=== PATIENT | male | born 1985 | race Caucasian/White ===

== ENCOUNTER 2021-12-31 09:19 | Emergency (ER) | payer SELFPAY ==
[2021-12-31 10:18] LABS: Absolute Lymphocytes (CBC) 2.1 K/uL (0.7-4.9); Hematocrit 46.1 % (39.6-49.0); Lymphocytes % 16.4 % (15.3-44.8); MPV 8.7 fL (7.6-11.3)
[2021-12-31 10:33] LABS: Albumin 2.9 g/dL (3.4-5.0); Bilirubin Total 1.1 mg/dL (0.2-1.0); Protein, Total 8.3 g/dL (6.4-8.2)
[2021-12-31 10:41] LABS: Potassium 2.6 mmol/L (3.5-5.1)
--- NOTE | 2021-12-31 12:56 | RAD REPORT ---
EXAM DESCRIPTION: CTAbdomen Pelvis W Contrast - 12/31/2021 12:30 pm CLINICAL HISTORY: Abdominal pain, distension COMPARISON: No comparisons TECHNIQUE: CT of the abdomen and pelvis was performed. All CT scans are performed using dose optimization technique as appropriate and may include automated exposure control or mA/KV adjustment according to patient size. FINDINGS: Lower chest: No acute abnormality. Liver: No acute abnormality or suspicious lesions. Biliary: No biliary ductal dilatation. Stomach: No significant focal abnormality. Duodenum: No significant focal abnormality. Pancreas: No significant abnormality. Spleen: No significant abnormality. Adrenal: No suspicious lesions. Kidney/ureter: No hydronephrosis. No renal calculi. Retroperitoneum: No retroperitoneal adenopathy. Vascular: No aneurysm. Bowel: Colonic obstruction at the level of the descending and proximal sigmoid.. There is irregular s oft tissue thickening concerning for underlying mass. Peritoneum: Peripherally enhancing mass/ collection in the sigmoid mesocolon measuring 6.3 x 5.5 x 3. 3 cm. . Small fat containing inguinal hernias. Bladder: Grossly unremarkable. Reproductive: No adnexal masses. Bones: No acute fracture. Other: n/a IMPRESSION: Colonic obstruction at the level of the distal descending/proximal sigmoid concerning fo r underlying colonic neoplasm. Peripherally enhancing mass/collection in the sigmoid mesocolon favore d to represent tumor/adenopathy rather than a contained perforation. Recommend surgical consultation.
[2021-12-31] MEDS ORDERED: Ringers Lactate 1,000 ML IV ONE (13:32)
[2021-12-31 14:11] LABS: SARS-CoV-2 Antigen Rapid Res Negative (Negative)
[2021-12-31] MEDS ORDERED: KCL 20 MEQ/100 mL IVPB 100 ML IV ONE (14:50)
[2021-12-31] MEDS ORDERED: NA CHLORIDE 0.9% 250 ML ONE (14:51)
[2021-12-31] MEDS ORDERED: LIDOCAINE VISCOUS 2% SOLN 15 ML UDC ONE (15:55)
--- NOTE | 2021-12-31 16:45 | ER ---
Nurse's Notes [facility] Name: Eric Kimball Age: 36 yrs Sex: Male : 1985 Arrival Date: 12/31/2021 Time: 09:21 Bed 15 Private MD: Diagnosis: Large Bowel Obstruction;Colonic Mass Presentation: 12/31 09:48 Chief complaint: Patient states: Pt states constipation and vomiting x5 days with jh6 bloating. Pt reports 14lb weight loss x5 days. Coronavirus screen: Vaccine status: Patient reports being unvaccinated. Ebola Screen: Patient negative for fever greater than or equal to 101.5 degrees Fahrenheit, and additional compatible Ebola Virus Disease symptoms Patient denies exposure to infectious person. Patient denies travel to an Ebola-affected area in the 21 days before illness onset. Initial Sepsis Screen: Does the patient meet any 2 criteria? No. Patient's initial sepsis screen is negative. Does the patient have a suspected source of infection? No. Patient's initial sepsis screen is negative. Risk Assessment: Do you want to hurt yourself or someone else? Patient reports no desire to harm self or others. Onset of symptoms was December 26, 2021. 09:48 Method Of Arrival: Ambulatory [facility] 09:48 Acuity: HAL 3 6 Triage Assessment: 09:50 General: Appears in no apparent distress. comfortable, Behavior is calm, cooperative. 6 Pain: Complains of pain in abdomen Pain does not radiate. Pain currently is 5 out of 10 on a pain scale. Quality of pain is described as pressure, Bloating Pain began 5 days Is continuous. GI: Reports bloating, constipation, nausea, vomiting. Historical: - Allergies: 09:50 No Known Allergies; 6 - Home Meds: 09:50 None [Active]; 6 - PMHx: 09:50 Hypertensive disorder; [facility] - Immunization history:: Client reports having NOT received the Covid vaccine. - Social history:: Smoking status: Patient denies any tobacco usage or history of. Screenin:44 Abuse screen: Denies threats or abuse. Nutritional screening: No deficits noted. vg1 Tuberculosis screening: No symptoms or risk factors identified. Fall Risk No fall in past 12 months (0 pts). No secondary diagnosis (0 pts). IV access (20 points). Ambulatory Aid- None/Bed Rest/Nurse Assist (0 pts). Gait- Normal/Bed Rest/Wheelchair (0 pts) Mental Status- Oriented to own ability (0 pts). Total Landa Fall Scale indicates No Risk (0-24 pts). Assessment: 13:12 General: Appears in no apparent distress. comfortable, Behavior is calm, cooperative. vg1 Pain: Denies pain. Neuro: Level of Consciousness is awake, alert, obeys commands, Oriented to person, place, time, situation. Cardiovascular: Patient's skin is warm and dry. Respiratory: Airway is patent Respiratory effort is even, unlabored. GI: Abdomen is round obese, Bowel sounds present X 4 quads. Abd is soft and non tender X 4 quads. Reports intolerance of fluids, intolerance of food, nausea, vomiting. 13:12 : No signs and/or symptoms were reported regarding the genitourinary system. EENT: No vg1 signs and/or symptoms were reported regarding the EENT system. Derm: Skin is intact, is healthy with good turgor. Musculoskeletal: Circulation, motion, and sensation intact. 14:15 Reassessment: Patient appears in no apparent distress at this time. No changes from vg1 previously documented assessment. Patient and/or family updated on plan of care and expected duration. Pain level reassessed. Patient is alert, oriented x 3, equal unlabored respirations, skin warm/dry/pink. 15:15 Reassessment: Patient appears in no apparent distress at this time. No changes from vg1 previously documented assessment. Patient and/or family updated on plan of care and expected duration. Pain level reassessed. Patient is alert, oriented x 3, equal unlabored respirations, skin warm/dry/pink. 16:15 Reassessment: Patient appears in no apparent distress at this time. No changes from vg1 previously documented assessment. Patient and/or family updated on plan of care and expected duration. Pain level reassessed. Patient is alert, oriented x 3, equal unlabored respirations, skin warm/dry/pink. 16:56 Reassessment: Report given to Vineet WELLER. vg1 19:45 General: Appears in no apparent distress. Behavior is cooperative. Neuro: Level of sm5 Consciousness is awake, alert, obeys commands, Oriented to person, place, time, situation. GI: NGT to suction. Vital Signs: 09:48 Pulse 117; Resp 18; Temp 98.1; Pulse Ox 96% ; Weight 118.39 kg; Height 5 ft. 11 in. jh6 (180.34 cm); Pain 5/10; 10:11 BP 120 / 85; mb7 13:50 BP 119 / 87; Pulse 100; Resp 19; Pulse Ox 99% on R/A; vg1 14:30 BP 122 / 81; Pulse 96; Resp 16; Pulse Ox 95% on R/A; vg1 19:28 BP 116 / 71; Pulse 95; Resp 16; Pulse Ox 94% on R/A; sm5 09:48 Body Mass Index 36.40 (118.39 kg, 180.34 cm) 6 ED Course: 09:21 Patient arrived in ED. mr 09:22 Gilberto Jackson PA is PHCP. jmm 09:22 iGovani Bo DO is Attending Physician. m 09:50 Triage completed. 6 09:53 Arm band placed on left wrist. Patient placed in an exam room. jh6 10:05 Inserted saline lock: 20 gauge in left antecubital area, using aseptic technique. Blood jw7 collected. 10:06 Initial lab(s) drawn, by la, sent to lab. jw7 10:06 CBC with Diff Sent. jw7 10:06 CMP Sent. jw7 10:06 Lipase Sent. jw7 10:06 Lactate Sent. jw7 12:32 CT Abd/Pelvis - PO and IV Contrast In Process Unspecified. EDMS 13:11 Marilee Perry, RN is Primary Nurse. vg1 13:43 COVID swab sent to lab. tp1 13:44 Patient has correct armband on for positive identification. Bed in low position. Call vg1 light in reach. Side rails up X 1. Adult w/ patient. 15:03 initiated transfer to [facility]. bd 16:16 NGT: inserted 16 Fr. verified return of gastric contents, to intermittent suction. vg1 Returned gastric contents. Returned bile. Patient tolerated well. 17:03 XRAY Abdomen 1 View (KUB) In Process Unspecified. EDMS 19:11 Primary Nurse role handed off by Marilee Perry, RN mw2 19:14 Peace Monroy, NITHIN is Primary Nurse. 5 20:03 No provider procedures requiring assistance completed. Patient transferred, IV remains sm5 in place. Administered Medications: 13:30 Drug: Lactated Ringers Solution 1000 ml Route: IV; Rate: 1000 bolus; Site: left vg1 antecubital; 14:50 Drug: Potassium Chloride 20 mEq Route: IV; Rate: calculated rate; Site: left vg1 antecubital; 17:03 Follow up: IV Status: Completed infusion; IV Intake: 100ml vg1 Medication: 20:03 VIS not applicable for this client. sm5 Intake: 17:03 IV: 100ml; Total: 100ml. vg1 Outcome: 16:45 ER care complete, transfer ordered by MD. vargas 20:03 Transferred by ground EMS to [facility], Transfer form completed. 5 X-rays sent w/ patient. 20:03 Condition: stable 20:03 Instructed on the need for transfer. 20:03 Patient left the ED. 5 Signatures: Dispatcher [employer] EDMS Ximena Rausch Joel, PA PA [facility] Sreekanth, Melissa Fonseca, LakeishaNeoashely mw2 Marilee Perry, RN RN vg1 Salima Olsen RN RN jh6 Radha Montes De Oca RN RN tp1 Melissa Schulte mb7 Peace Monroy, RN RN 5 Maria Teresa Israel 7 Corrections: (The following items were deleted from the chart) 13:43 13:38 General: Appears in no apparent distress. comfortable, Behavior is calm, vg1 cooperative, vg1 13:43 13:38 Pain: Denies pain. vg1 vg1 13:43 13:38 Neuro: Level of Consciousness is awake, alert, obeys commands, Oriented to vg1 person, place, time, situation, vg1 13:43 13:38 Cardiovascular: Patient's skin is warm and dry. vg1 vg1 13:43 13:38 Respiratory: Airway is patent Respiratory effort is even, unlabored, vg1 vg1 13:43 13:38 GI: Abdomen is round obese, Abd is soft and non tender X 4 quads. vg1 vg1
--- NOTE | 2021-12-31 16:45 | EDPHYS ---
Physician Documentation [facility] Name: Eric Kimball Age: 36 yrs Sex: Male : 1985 Arrival Date: 12/31/2021 Time: 09:21 Bed 15 Private MD: ED Physician Giovani Bo HPI: 12/31 09:27 This 36 yrs old Male presents to ER via Ambulatory with complaints of Abdominal Pain. [facility] 09:27 The patient presents with abdominal pain. Onset: The symptoms/episode began/occurred jm gradually, 1 week(s) ago. The symptoms do not radiate. Associated signs and symptoms: Pertinent positives: nausea and vomiting. The symptoms are described as achy. This is a 36 year old male with a hstory of htn that presents to the ED with complaints of abdominal pain, vomiting, no bm for [address] Lopez due to concerns for bowel obstruction. . Historical: - Allergies: 09:50 No Known Allergies; [facility] - Home Meds: 09:50 None [Active]; [facility] - PMHx: 09:50 Hypertensive disorder; [facility] - Immunization history:: Client reports having NOT received the Covid vaccine. - Social history:: Smoking status: Patient denies any tobacco usage or history of. ROS: 09:27 Constitutional: Negative for fever, chills, and weight loss, Cardiovascular: Negative jm for chest pain, palpitations, and edema, Respiratory: Negative for shortness of breath, cough, wheezing, and pleuritic chest pain. 09:27 Abdomen/GI: Positive for abdominal pain, nausea and vomiting. 09:27 All other systems are negative. Exam: 09:27 Constitutional: This is a well developed, well nourished patient who is awake, alert, jmm and in no acute distress. Head/Face: atraumatic. Eyes: EOMI, no conjunctival erythema appreciated ENT: Moist Mucus Membranes Neck: Trachea midline, Supple Chest/axilla: Normal chest wall appearance and motion. Cardiovascular: Regular rate and rhythm. No edema appreciated Respiratory: Normal respirations, no respiratory distress appreciated 09:27 Back: Normal ROM Skin: General appearance color normal MS/ Extremity: Moves all extremities, no obvious deformities appreciated, no edema noted to the lower extremities Neuro: Awake and alert Psych: Behavior is normal, Mood is normal, Patient is cooperative and pleasant 09:27 Abdomen/GI: Inspection: distension, obese Bowel sounds: Palpation: soft, mild abdominal tenderness, in all quadrants. Vital Signs: 09:48 Pulse 117; Resp 18; Temp 98.1; Pulse Ox 96% ; Weight 118.39 kg; Height 5 ft. 11 in. jh6 (180.34 cm); Pain 5/10; 10:11 BP 120 / 85; mb7 13:50 BP 119 / 87; Pulse 100; Resp 19; Pulse Ox 99% on R/A; vg1 14:30 BP 122 / 81; Pulse 96; Resp 16; Pulse Ox 95% on R/A; vg1 19:28 BP 116 / 71; Pulse 95; Resp 16; Pulse Ox 94% on R/A; sm5 09:48 Body Mass Index 36.40 (118.39 kg, 180.34 cm) 6 MDM: 09:27 Patient medically screened. [facility] 16:43 Data reviewed: vital signs, nurses notes. Counseling: I had a detailed discussion with alicia the patient and/or guardian regarding: the historical points, exam findings, and any diagnostic results supporting the discharge/admit diagnosis, lab results, radiology results, the need for further work-up and treatment in the hospital, the need to transfer to another facility. ED course: I discussed the patient with Dr. Lopez whom recommended transfer due to no GI. I discussed the patient with Dr. Carroll whom accepted the patient to his service. . 12/31 09:28 Order name: CBC with Diff; Complete Time: 10:38 [facility] 12/31 09:28 Order name: CMP; Complete Time: 10:46 [facility] 12/31 09:28 Order name: Lipase; Complete Time: 10:46 [facility] 12/31 09:28 Order name: Lactate; Complete Time: 11:16 [facility] 12/31 12:39 Order name: Lactate; Complete Time: 14:09 [facility] 12/31 09:28 Order name: IV Saline Lock; Complete Time: 10:06 [facility] 12/31 09:28 Order name: Labs collected and sent; Complete Time: 10:06 [facility] 12/31 09:28 Order name: CT Abd/Pelvis - PO and IV Contrast; Complete Time: 13:02 [facility] 12/31 13:38 Order name: SARS RAPID; Complete Time: 14:11 vg1 12/31 14:43 Order name: BMP; Complete Time: 15:40 jmm 12/31 16:13 Order name: XRAY Abdomen 1 View (KUB); Complete Time: 17:22 vg1 12/31 15:02 Order name: NG Tube; Complete Time: 16:15 jmm Administered Medications: 13:30 Drug: Lactated Ringers Solution 1000 ml Route: IV; Rate: 1000 bolus; Site: left vg1 antecubital; 14:50 Drug: Potassium Chloride 20 mEq Route: IV; Rate: calculated rate; Site: left vg1 antecubital; 17:03 Follow up: IV Status: Completed infusion; IV Intake: 100ml vg1 Disposition: 01/01 09:44 Co-signature as Attending Physician, Giovani RIVERA was immediately available on-site ms3 in the Emergency Department for consultation in the care of the patient.. Disposition Summary: 12/31/21 16:45 Transfer Ordered Transfer Location: [facility] Reason: Higher level of care jmm Condition: Stable jmm Problem: new jmm Symptoms: are unchanged jmm Accepting Physician: Dr. Carroll(12/31/21 20:03) sm5 Diagnosis - Large Bowel Obstruction jmm - Colonic Mass jmm Discharge Instructions: - Discharge Summary Sheet vg1 Forms: - Medication Reconciliation Form jmm - SBAR form vg1 Signatures: Dispatcher [employer] Gilberto Easley PA PA jmm Garcia, Victoria RN RN vg1 Giovani Bo DO DO ms3 Salima Olsen RN RN jh6 Peace Monroy RN RN sm5 Corrections: (The following items were deleted from the chart) 12/31 20:03 16:45 Dr. Carly vargas sm5
--- NOTE | 2021-12-31 17:15 | RAD REPORT ---
EXAM DESCRIPTION: RAD - Abdomen 1 View (KUB) - 12/31/2021 5:01 pm CLINICAL HISTORY: POST NG PLACEMENT COMPARISON: Abdomen Pelvis W Contrast dated 12/31/2021 FINDINGS/IMPRESSION: NG tube has been placed with tip overlying the gastric body in satisfactory pos ition.Re- demonstrated colonic obstruction.
[2021-12-31 20:27] VITALS: TEMP 98.1
[2021-12-31 20:33] VITALS: BP 116/71; O2SAT 94
== END 2021-12-31 20:03 | disposition short-term general hospital (02) ==
LOC: ER 09:19
DX: K56.609 Unspecified intestinal obstruction, unspecified as to partial versus complete obstruction (principal); R11.2 Nausea with vomiting, unspecified; I10 Essential (primary) hypertension
CPT/HCPCS: 36415; 74018; 74177; 80048; 80053; 83605; 83690; 85025; 87811; J3480; J7050; J7120; Q9967